=== PATIENT | female | born 1950 | race Caucasian/White ===

== ENCOUNTER 2017-02-22 14:56 | Emergency (ER) | payer OTHER ==
[~2017-02-22] VITALS: Ht 157.5 cm; Wt 95.7 kg
[~2017-02-22 14:56] MED LIST: IBUPROFEN400 MG PO; ZESTRIL10 MG PO
[2017-02-22 15:03] VITALS: Ht 157.5 cm; Wt 95.7 kg
[2017-02-22 17:35] VITALS: BP 137/89
== END 2017-02-22 17:35 | disposition home or self-care (01) ==
LOC: ED 14:56
DX: J11.1 Influenza due to unidentified influenza virus with other respiratory manifestations (principal); I10 Essential (primary) hypertension

== ENCOUNTER 2018-02-10 18:37 | Emergency (ER) | payer OTHER ==
[~2018-02-10] VITALS: Ht 160 cm; Wt 92.1 kg
[2018-02-10 18:49] VITALS: Ht 160 cm; Wt 92.1 kg
[2018-02-10 22:22] VITALS: BP 159/98
== END 2018-02-10 22:00 | disposition home or self-care (01) ==
LOC: ED 18:37
DX: S83.92XA Sprain of unspecified site of left knee, initial encounter (principal); I10 Essential (primary) hypertension; J20.9 Acute bronchitis, unspecified; W19.XXXA Unspecified fall, initial encounter; Y93.89 Activity, other specified; Y92.89 Other specified places as the place of occurrence of the external cause; Y99.8 Other external cause status
CPT/HCPCS: Q0092

== ENCOUNTER 2018-10-11 12:33 | Emergency (ER) | payer OTHER | END 2018-10-11 12:40 | disposition left against medical advice (07) | LOC: ED 12:33 | DX: Z53.21 Procedure and treatment not carried out due to patient leaving prior to being seen by health care provider (principal) ==